=== PATIENT | female | born 1990 | race Caucasian/White ===

== ENCOUNTER → 2018-08-08 | Day surgery (SDC) | payer OTHER ==
[2018-08-08 13:30] VITALS: BMI 31.6
--- NOTE | 2018-08-08 16:24 | ULT ---
ULTRASOUND GUIDED BIOPSY OF A RIGHT NECK ULTRASOUND 08/08/18 HISTORY: Enlarged neck lymph node. COMPARISON: None. CORRELATION: Outside CT performed at [facility], 05/08/18. FINDINGS: Successful right neck lymph node biopsy. One 20 gauge biopsy and two 18 gauge core biopsy samples wer e obtained. Lesional tissue is present. TECHNIQUE: Consent is obtained to perform an ultrasound guided biopsy of a large right neck lymph node. The lymp h node that was chosen was designated by the patient who stated this was the lymph node of concern. C orrelation made with previous CT demonstrating multiple enlarged soft tissue neck lymph nodes. Right neck was prepped and draped in the sterile fashion. 1% lidocaine, buffered with sodium bicarbonate us ed for local anesthesia. Under ultrasound guidance, a 20 gauged Temno needle was used to obtain a sin gle core. The 20 gauged Temno was switched out for an 18 gauge core biopsy needle (Rosalind). Lesiona l tissue was present. Postprocedure images do not demonstrate any significant hematoma. There are no immediate postprocedure complications. IMPRESSION: Successful biopsy of a large right neck lymph node. POS: [facility]
== END ==
LOC: ULT 12:40
PROVIDERS: ATTEND Otolaryngology Plastic Surgery within the Head & Neck
PROC: 07D13ZX Extraction of Right Neck Lymphatic, Percutaneous Approach, Diagnostic (ICD-10-PCS; principal; 2018-08-08)
DX: R59.0 Localized enlarged lymph nodes (principal); Z88.5 Allergy status to narcotic agent; Z88.8 Allergy status to other drugs, medicaments and biological substances
CPT/HCPCS: 38505; 88184; 88305; 88333; 88334; 88341; 88342